=== PATIENT | female | born 1995 | race Two or more races ===

== ENCOUNTER 2024-05-09 08:30 | Outpatient (CLI) | payer OTHER | END 2024-05-09 08:36 | disposition home or self-care (01) | LOC: PRENATAL 08:30 | PROVIDERS: ATTEND Obstetrics & Gynecology Maternal & Fetal Medicine | DX: O36.80X0 Pregnancy with inconclusive fetal viability, not applicable or unspecified (principal); Z36.82 Encounter for antenatal screening for nuchal translucency; O34.219 Maternal care for unspecified type scar from previous cesarean delivery; O36.1999 Maternal care for other isoimmunization, unspecified trimester, other fetus; Z14.8 Genetic carrier of other disease; Z3A.13 13 weeks gestation of pregnancy ==

== ENCOUNTER → 2024-06-14 | Emergency (ER) | payer OTHER ==
[~2024-06-14] VITALS: Ht 160 cm; Wt 54.0 kg
[~2024-06-14] MED LIST: ACETAMINOPHEN500 M1 PO; GILTUSS HONEY118 ML PO
[2024-06-14 11:59] VITALS: BP 130/85; O2SAT 100
[2024-06-14 16:07] LABS: HEMATOCRIT 35.4 % (36.0-45.00); HEMOGLOBIN 12.2 g/dL (12.0-15.00); MEAN CELL VOLUME 84.8 fL (80.00-100.00); MEAN CORPUSCULAR HEMOGLOBIN 29.2 pg (27.00-32.0); MEAN CORPUSCULAR HGB CONC 34.4 g/dl (32.0-36.0); PLATELET COUNT 339 K/uL (150-450); RED BLOOD COUNT 4.17 M/uL (4.00-6.00); RED CELL DISTRIBUTION WIDTH 13.6 % (11.5-14.5)
[2024-06-14 16:25] LABS: ALBUMIN 3.3 gm/dL (3.4-5.0); BILIRUBIN TOTAL 0.34 mg/dL (0.3-1.2); CALCIUM 9.1 mg/dL (8.5-10.1); CREATININE SERUM 0.48 mg/dL (0.55-1.02); GFR 156.33; POTASSIUM 3.68 mEq/L (3.5-5.1); TOTAL PROTEIN 7.3 gm/dL (6.4-8.2)
[2024-06-14 16:43] LABS: COVID-19 AG NEGATIVE (NEGATIVE)
[2024-06-14 17:14] LABS: INFLUENZA A AG NEGATIVE (NEGATIVE)
== END | disposition home or self-care (01) ==
LOC: ER 11:53
PROVIDERS: General Practice
DX: O26.892 Other specified pregnancy related conditions, second trimester (principal); Z3A.18 18 weeks gestation of pregnancy; G43.909 Migraine, unspecified, not intractable, without status migrainosus; J45.909 Unspecified asthma, uncomplicated; B34.9 Viral infection, unspecified; Z20.822 Contact with and (suspected) exposure to COVID-19

== ENCOUNTER 2024-06-22 17:25 | Emergency (ER) | payer OTHER ==
[~2024-06-22] VITALS: Ht 165.1 cm; Wt 56.7 kg
[2024-06-22] MEDS ORDERED: GUAIFENESIN/DEXTROMETHORPHAN 100MG/10ML BLIST.PACK PO ONE (19:15)
[2024-06-22] MEDS ORDERED: FAMOTIDINE/PF 20 MG/2 ML VIAL IV ONE (19:15)
[2024-06-22] MEDS ORDERED: 0.9 % SODIUM CHLORIDE 1,000 ML IV ONE (19:15)
[2024-06-22] MEDS ORDERED: ACETAMINOPHEN 500 MG GEL..CAP PO ONE (19:15)
[2024-06-22] MEDS ORDERED: CETIRIZINE HCL 5 MG/5 ML ML PO ONE (19:15)
[2024-06-22] MEDS ORDERED: ONDANSETRON HCL 2 MG/ML VIAL IV ONE (19:15)
[2024-06-22 19:47] LABS: HEMATOCRIT 33.2 % (36.0-45.00); HEMOGLOBIN 11.3 g/dL (12.0-15.00); MEAN CELL VOLUME 83.7 fL (80.00-100.00); MEAN CORPUSCULAR HEMOGLOBIN 28.6 pg (27.00-32.0); MEAN CORPUSCULAR HGB CONC 34.2 g/dl (32.0-36.0); PLATELET COUNT 337 K/uL (150-450); RED BLOOD COUNT 3.97 M/uL (4.00-6.00); RED CELL DISTRIBUTION WIDTH 13.3 % (11.5-14.5)
[2024-06-22 20:10] LABS: ALBUMIN 3.1 gm/dL (3.4-5.0); BILIRUBIN TOTAL 0.69 mg/dL (0.3-1.2); CALCIUM 8.9 mg/dL (8.5-10.1); CREATININE SERUM 0.37 mg/dL (0.55-1.02); GFR 211.1; GLOBULINA 4.4 G/DL (2.4-3.5); POTASSIUM 3.86 mEq/L (3.5-5.1); TOTAL PROTEIN 7.5 gm/dL (6.4-8.2)
[2024-06-22 21:31] LABS: COVID-19 AG NEGATIVE (NEGATIVE); INFLUENZA A AG NEGATIVE (NEGATIVE)
[2024-06-22] MEDS ORDERED: ZYRTEC10 MG PO ×2 (22:32→22:33)
[2024-06-22] MEDS ORDERED: PEPCID AC20 MG PO (22:32)
[2024-06-22] MEDS ORDERED: ONDANSETRON HCL4 MG PO (22:32)
[2024-06-22] MEDS ORDERED: AMOX-CLAV 875-1 EAC1 PO (22:32)
== END 2024-06-22 22:51 ==
LOC: ER 17:26
PROVIDERS: Emergency Medicine
DX: O99.512 Diseases of the respiratory system complicating pregnancy, second trimester (principal); Z3A.20 20 weeks gestation of pregnancy; B34.9 Viral infection, unspecified; J32.9 Chronic sinusitis, unspecified; G43.909 Migraine, unspecified, not intractable, without status migrainosus; J45.909 Unspecified asthma, uncomplicated; J06.9 Acute upper respiratory infection, unspecified; Z20.822 Contact with and (suspected) exposure to COVID-19

== ENCOUNTER → 2024-06-26 13:00 | Outpatient (CLI) | payer OTHER ==
[~2024-06-26 13:00] MED LIST changes: +AMOX-CLAV 875-1 EAC1 PO; +ONDANSETRON HCL4 MG PO; +PEPCID AC20 MG PO; +ZYRTEC10 MG PO
== END | disposition home or self-care (01) ==
LOC: PRENATAL 13:00
PROVIDERS: ATTEND Obstetrics & Gynecology Maternal & Fetal Medicine
DX: O44.00 Complete placenta previa NOS or without hemorrhage, unspecified trimester (principal); O34.219 Maternal care for unspecified type scar from previous cesarean delivery; O36.1999 Maternal care for other isoimmunization, unspecified trimester, other fetus; Z3A.20 20 weeks gestation of pregnancy

== ENCOUNTER → 2024-08-20 14:44 | Outpatient (CLI) | payer OTHER | END | disposition home or self-care (01) | LOC: PRENATAL 14:44 | PROVIDERS: ATTEND Obstetrics & Gynecology Maternal & Fetal Medicine | DX: O26.849 Uterine size-date discrepancy, unspecified trimester (principal); O36.8199 Decreased fetal movements, unspecified trimester, other fetus; O34.219 Maternal care for unspecified type scar from previous cesarean delivery; O36.1999 Maternal care for other isoimmunization, unspecified trimester, other fetus; O99.019 Anemia complicating pregnancy, unspecified trimester; Z3A.28 28 weeks gestation of pregnancy ==

== ENCOUNTER → 2024-08-21 11:05 | Outpatient (CLI) | payer OTHER | END | disposition home or self-care (01) | LOC: PRENATAL 11:05 | PROVIDERS: ATTEND Obstetrics & Gynecology Maternal & Fetal Medicine | DX: Z76.1 Encounter for health supervision and care of foundling (principal) ==

== ENCOUNTER 2024-09-15 18:53 | Outpatient (CLI) | payer OTHER ==
[2024-09-15 18:02] VITALS: BP 127/82
[2024-09-15] MEDS ORDERED: RINGERS SOLUTION,LACTATED 1,000 ML IV SCH (19:00)
[2024-09-15 19:21] LABS: BASO % 0.3 % (0.1-1.2); EOS # 0.04 (0.04-0.54); EOS % 0.5 % (0.7-7.0); LYMPH # 1.35 (1.18-3.74); LYMPH % 17.1 % (19.3-53.1); MEAN PLATELET VOLUME 9.90 fl (9.4-12.4); MONO # 0.47 (0.24-0.82); MONO % 5.9 % (4.7-12.5); NEUT # 5.98 (1.56-6.13); NEUT % 75.7 % (34.0-71.1); RED CELL DISTRIBUTION WIDTH 13.4 % (11.6-14.4)
[2024-09-15 19:43] LABS: INR 0.94
[2024-09-15 19:45] VITALS: BP 107/66; O2SAT 100
[2024-09-15 19:50] LABS: ALT/SGPT 20.0 U/L (12-78); AST/SGOT 16.0 U/L (15-37); BILIRUBIN TOTAL 0.32 mg/dL (0.3-1.2); BUN CREA RATIO 19.0 (7.0-25.0); CREATININE SERUM 0.48 mg/dL (0.55-1.02); GFR 155.14; GLOBULINA 3.5 G/DL (2.4-3.5); GLUCOSE FASTING 94.0 mg/dL (65-100); OSMOLALITY SERUM 278.0 MOSM/KG (275-295)
[2024-09-15 23:24] VITALS: BP 101/66
[2024-09-15 23:31] LABS: URINE APPEARANCE Clear; URINE BILIRRUBIN Negative (NEGATIVE); URINE BLOOD Negative; URINE COLOR Yellow; URINE GLUCOSE Negative (NEGATIVE); URINE KETONE Trace (NEGATIVE); URINE LEUKOCYTE Negative; URINE NITRATE Negative; URINE PROTEIN Negative (NEGATIVE); URINE UROBILINOGEN 1.0 E.U./dl
[2024-09-15 23:35] LABS: URINE BACTERIA 70.8 uL (0.0-1933); URINE EPITHELIAL CELLS 7.9 uL (0.0-38.8); URINE RBC 2.0 uL (0.0-20.8); URINE WBC 3.9 uL (0.0-23.2)
[2024-09-15 23:41] LABS: TYPE CELLS SQUAMOUS; URINE CAST 0.14 uL (0.0-1.40)
[2024-09-16 03:12] VITALS: BP 99/60
[2024-09-16 07:41] VITALS: BP 105/63
[2024-09-16 09:41] VITALS: BP 105/63
== END 2024-09-16 09:42 | disposition home or self-care (01) ==
LOC: OBS/DEL 18:53
PROVIDERS: ATTEND Obstetrics & Gynecology
DX: O36.8130 Decreased fetal movements, third trimester, not applicable or unspecified (principal); Z3A.32 32 weeks gestation of pregnancy

== ENCOUNTER → 2024-09-28 09:55 | Outpatient (CLI) | payer OTHER | END | disposition home or self-care (01) | LOC: PRENATAL 09:55 | PROVIDERS: ATTEND Obstetrics & Gynecology Maternal & Fetal Medicine | DX: O26.849 Uterine size-date discrepancy, unspecified trimester (principal); O36.8199 Decreased fetal movements, unspecified trimester, other fetus; O34.219 Maternal care for unspecified type scar from previous cesarean delivery; O36.1999 Maternal care for other isoimmunization, unspecified trimester, other fetus; O99.019 Anemia complicating pregnancy, unspecified trimester; Z3A.33 33 weeks gestation of pregnancy ==

== ENCOUNTER 2024-10-23 13:08 | Inpatient (IN) | payer OTHER ==
[~2024-10-23] VITALS: Ht 165.1 cm; Wt 2.7 kg
[2024-10-23 13:41] LABS: BASO % 0.3 % (0.1-1.2); EOS # 0.05 (0.04-0.54); EOS % 0.7 % (0.7-7.0); LYMPH # 1.25 (1.18-3.74); LYMPH % 16.7 % (19.3-53.1); MEAN PLATELET VOLUME 11.10 fl (9.4-12.4); MONO # 0.54 (0.24-0.82); MONO % 7.2 % (4.7-12.5); NEUT # 5.51 (1.56-6.13); NEUT % 73.5 % (34.0-71.1); RED CELL DISTRIBUTION WIDTH 17.4 % (11.6-14.4)
[2024-10-23 13:48] LABS: URINE APPEARANCE Clear; URINE BILIRRUBIN Negative (NEGATIVE); URINE BLOOD Negative; URINE COLOR Yellow; URINE GLUCOSE Negative (NEGATIVE); URINE KETONE Negative (NEGATIVE); URINE LEUKOCYTE Small; URINE NITRATE Negative; URINE PROTEIN Negative (NEGATIVE); URINE UROBILINOGEN 1.0 E.U./dl
[2024-10-23 13:52] LABS: URINE BACTERIA 1630.8 uL (0.0-1933); URINE EPITHELIAL CELLS 61.3 uL (0.0-38.8); URINE WBC 10.4 uL (0.0-23.2)
[2024-10-23 13:59] LABS: URINE CAST 0.00 uL (0.0-1.40); URINE RBC 1.6 uL (0.0-20.8)
[2024-10-23 14:03] LABS: INR < 0.93
[2024-10-23] MEDS ORDERED: PRENATABS FA T1 EACH PO (14:45)
[2024-10-30] MEDS ORDERED: FOLIC ACID0.8 M1 PO (07:31)
[2024-10-30 07:32] VITALS: BP 137/88
[2024-10-30] MEDS ORDERED: CEFAZOLIN SODIUM 1,000 MG VIAL IV ONE (12:30)
[2024-10-30] MEDS ORDERED: OXYTOCIN 10 UNITS/ML VIAL IV ONE (12:30)
[2024-10-30] MEDS ORDERED: ERYTHROMYCIN BASE OPHT 1GM EACH TUBE OP ONE (12:30)
[2024-10-30] MEDS ORDERED: PROMETHAZINE HCL 50 MG/ML AMPUL IM PRN (15:00)
[2024-10-30] MEDS ORDERED: MORPHINE SULFATE 4 MG/ML VIAL IV ONE ×2 (15:50→16:20)
[2024-10-30] MEDS ORDERED: MORPHINE SULFATE 4 MG/ML CARTRIDGE IV SCH (17:00)
[2024-10-30 17:35] LABS: BASO % 0.2 % (0.1-1.2); EOS # 0.01 (0.04-0.54); EOS % 0.1 % (0.7-7.0); LYMPH # 1.31 (1.18-3.74); LYMPH % 13.8 % (19.3-53.1); MEAN PLATELET VOLUME 10.20 fl (9.4-12.4); MONO # 0.61 (0.24-0.82); MONO % 6.4 % (4.7-12.5); NEUT # 7.49 (1.56-6.13); NEUT % 78.9 % (34.0-71.1); RED CELL DISTRIBUTION WIDTH 17.7 % (11.6-14.4)
[2024-10-30 17:50] VITALS: BP 129/80
[2024-10-30] MEDS ORDERED: KETOROLAC TROMETHAMINE 60 MG VIAL IM NR (21:00)
[2024-10-31] VITALS: BP 124/79
[2024-10-31] MEDS ORDERED: OxyCODONE HCL 5 MG TABLET (ROXICODONE) PO SCH (05:00)
[2024-10-31 08:00] VITALS: BP 121/78
[2024-10-31] MEDS ORDERED: DOCUSATE SODIUM 100MG CAP PO SCH (09:00)
[2024-10-31] MEDS ORDERED: SIMETHICONE 125 MG CAPSULE PO SCH (09:00)
[2024-10-31] MEDS ORDERED: PNV,CALCIUM 72/IRON/FOLIC ACID 1 TAB TABLET PO SCH (09:00)
[2024-10-31] MEDS ORDERED: FF) RHO(D) IMMUNE GLOBULIN (POM) IM ONE (10:30)
[2024-10-31 19:32] VITALS: BP 116/77
[2024-11-01 00:59] VITALS: BP 128/86
[2024-11-01 08:44] VITALS: BP 100/65; O2SAT 98
== END 2024-11-01 15:25 | disposition home or self-care (01) | DRG 788 ==
LOC: OB/GYN 10-30 08:00 → O/R 10-30 08:00 → OB/GYN 10-30 12:30
PROVIDERS: ADMIT Obstetrics & Gynecology; ATTEND Obstetrics & Gynecology
PROC: 0UB00ZZ Excision of Right Ovary, Open Approach (ICD-10-PCS; 2024-10-30)
PROC: 4A1HXCZ Monitoring of Products of Conception, Cardiac Rate, External Approach (ICD-10-PCS; 2024-10-30)
PROC: 10D00Z1 Extraction of Products of Conception, Low, Open Approach (ICD-10-PCS; principal; 2024-10-30 11:30)
DX: O34.83 Maternal care for other abnormalities of pelvic organs, third trimester (principal); D27.0 Benign neoplasm of right ovary; O99.824 Streptococcus B carrier state complicating childbirth; O34.211 Maternal care for low transverse scar from previous cesarean delivery; Z3A.39 39 weeks gestation of pregnancy; Z37.0 Single live birth